=== PATIENT | male | born 1970 | race Caucasian/White ===

== ENCOUNTER 2020-02-21 16:48 | Emergency (ER) | payer OTHER, SELFPAY ==
[2020-02-21 16:55] VITALS: BP 126/80; PULSE 97; RESP 22; TEMP 37.1; O2SAT 99
--- NOTE | 2020-02-21 17:19 | ED.GENADULT ---
HPI - General Adult General Chief complaint: Skin/Abscess/Foreign Body Stated complaint: Possible Poison Teena Time Seen by Provider: 02/21/20 17:20 Source: patient and RN notes reviewed Mode of arrival: ambulatory Limitations: no limitations History of Present Illness HPI narrative: This is a 49 years old male presents to the office for evaluation itchy rash for four days. Symptoms began shortly after he working in the yard. His cousin who work in the same year has similar rash but not as bad as he is. Rash was very intense last night. No treatment prior to arrival. He admits to taking a very hot hot showers which has helped with his itchiness temporarily. TD is up-to-date. Related Data Allergies Allergy/AdvReac Type Severity Reaction Status Date / Time No Known Allergies Allergy Verified 02/21/20 17:04 Review of Systems Review of Systems: Narrative: CONSTITUTIONAL: Denies fever, chills ENT: Denies difficulty swallowing CARDIOVASCULAR: Denies chest pain, palpitation RESPIRATORY: Denies dyspnea, wheezing, cough GASTROINTESTINAL: Denies abdominal pain, nausea, vomiting SKIN: Reports itchy rash on extremities, torso MUSCULOSKELETAL: Denies acute back pain NEUROLOGIC: Denies lightheaded All other systems reviewed are negative, except as documented in HPI. [facility] Past Medical History Medical History (Updated 02/21/20 @ 17:32 by HARLEY Rodriguez) Anxiety Surgical History Surgical History (Updated 02/21/20 @ 17:33 by HARLEY Rodriguez) Hx of appendectomy Comments At time of signature, I agree with nursing past medical, surgical, social and family history. There is no relevant family history pertinent to the presenting complaint. Exam Narrative: Exam Narrative: GENERAL: This is a well-nourished, well-developed patient, in no apparent distress. Older than state age. THROAT: Mucous membranes moist, posterior pharynx clear. Patient has no teeth. NECK: Neck supple, non-tender without lymphadenopathy, masses or thyromegaly. CARDIOVASCULAR: Regular rate and rhythm without murmurs, gallops, or rubs. RESPIRATORY: Clear to auscultation. Breath sounds equal bilaterally. No wheezes, rales, or rhonchi. GASTROINTESTINAL: Abdomen soft, non-tender, nondistended. Bowel sounds are active. No hepato-splenomegaly, or palpable masses. No guarding. SKIN: macular, erythema noted throughout his extremities, torso and neck with mixture of old and new skin lesions; patient contribute to picking/scratching. NEURO: awake, alert, and oriented to person, place and time. There were no obvious focal neurologic abnormalities. Steady gait EXTREMITIES: Normal range of motion. No edema. Bernice Coma Scale Eye Opening: Spontaneous 4 Bernice Coma Scale Motor: Obeys Commands 6 Notus Coma Scale Verbal: Oriented 5 Course Vital Signs Vital signs: Vital Signs Temperature 98.8 F 02/21/20 16:55 Pulse Rate 97 02/21/20 16:55 Respiratory Rate 22 H 02/21/20 16:55 Blood Pressure 126/80 02/21/20 16:55 Pulse Oximetry 99 02/21/20 16:55 Temperature 98.8 F 02/21/20 16:55 Pulse Rate 97 02/21/20 16:55 Respiratory Rate 22 H 02/21/20 16:55 Blood Pressure 126/80 02/21/20 16:55 Pulse Oximetry 99 02/21/20 16:55 Medical Decision Making MDM Narrative Medical decision making narrative: Discharge instructions reviewed with patient, as well as provided in writing per nursing staff. The instructions also include specific and strict return/GO TO THE ER as well as f/u information. All questions have been answered, and the patient deny any further questions with discharge and discharge plan. Differential Diagnosis Differential Diagnosis: Contact/allergic dermatitis, atopic dermatitis, psoriasis, eczema, cellulitis, tinea, erythema multiforme, viral exanthem, drug eruption Vital Signs Vital Signs: Vital Signs Temperature 98.8 F 02/21/20 16:55 Pulse Rate 97 02/21/20 16:55 Respiratory Rate 22 H 02/21/20 16
== END 2020-02-21 17:32 | disposition home or self-care (01) ==
PROVIDERS: Emergency Provider Nurse Practitioner
DX: L30.9 Dermatitis, unspecified (principal)
CPT/HCPCS: 99213; G0463

== ENCOUNTER 2020-11-17 19:38 | Emergency (ER) | payer OTHER, SELFPAY ==
[2020-11-17 19:45] VITALS: BP 139/86; PULSE 84; RESP 18; TEMP 35.9; O2SAT 100
--- NOTE | 2020-11-17 20:07 | ED.DENTAL ---
HPI - Dental/Oral General Chief complaint: Dental/Oral Stated complaint: toothpain Time Seen by Provider: 11/17/20 19:55 Source: patient, RN notes reviewed and old records reviewed Mode of arrival: ambulatory Limitations: no limitations History of Present Illness HPI Narrative: 50 year old male presents to [facility] with complaints of dental pain to his right lower mouth for the past 3 days. Patient reports history of poor dental care and bad teeth. Patient states pain to # 29 tooth which is broken with surrounding gum red with no evidence of drainage. Patient states that he has past history of methamphetamine use,reports no use for the past 14 months. Patient has taken some Ibuprofen for his discomfort but reports no relief in his discomfort. Patient states that he has no dentist, list will be given. MD Complaint: tooth pain Location: Tooth # (29) Onset (ago): day(s) (3) Severity: severe Severity scale (1-10): 9 Relieving factors: NSAIDs Exacerbating factors: chewing Context: history of dental caries and poor dental care Associated symptoms: gum swelling and other Treatment prior to arrival: other (Ibuprofen) Related Data Allergies Allergy/AdvReac Type Severity Reaction Status Date / Time No Known Allergies Allergy Verified 02/21/20 17:04 Review of Systems Review of Systems: Narrative: CONSTITUTIONAL: Denies fever, chills, or sweats. EYES: Denies visual changes, redness, or discharge. ENT: Denies rhinorrhea, congestion, sore throat, or otalgia. Positive for right-sided dental pain lower gum CARDIOVASCULAR: Denies chest pain, palpitations, or edema. RESPIRATORY: Denies cough or dyspnea. GASTROINTESTINAL: Denies abdominal pain, nausea, vomiting, or diarrhea. GENITOURINARY: Denies dysuria or hematuria. SKIN: Denies rash or itching. MUSCULOSKELETAL: Denies back pain, joint pain, or myalgia. NEUROLOGIC: Denies headache, numbness, or weakness. PSYCHIATRIC: Positive history of anxiety or depression. All systems reviewed & are unremarkable except as noted in HPI and below PMFSH Past Medical History Medical History (Updated 11/26/20 @ 20:05 by Debbie Villalba NP) Anxiety History of dental problems History of drug abuse Surgical History Surgical History (Updated 11/26/20 @ 20:06 by Debbie Villalba NP) H/O tooth extraction Hx of appendectomy Family History Family History (Updated 11/26/20 @ 20:07 by Debbie Villalba NP) Other No significant family history Social History Social History (Updated 11/26/20 @ 20:07 by Debbie Villalba NP) Smoking status: Former smoker Alcohol intake: former Substance use: former Substance use type: amphetamines Last use: 14 months ago stated Gender identity (if verbalized by the patient): Male Comments At time of signature, agree with nursing past medical, surgical, social and family history. There is no relevant family history pertinent to the presenting complaint Exam Narrative: Exam Narrative: GENERAL: Well-appearing, well-nourished, and in no acute distress. HEAD: Normocephalic, atraumatic. EYES: PERRLA and EOMI. ENT: Nares clear, no rhinorrhea or epistaxis. Mucous membranes moist. TMs normal with light reflex. Throat pink with no tonsil enlargement no trismus or Elroy angina NECK: Supple. Right-sided lymphadenopathy CHEST: Clear to auscultation. No respiratory distress. SaO2 100% on room air HEART: Regular rate and rhythm. No murmur heard. Normal peripheral pulses. ABDOMEN: Soft, nontender, nondistended, normal active bowel sounds. EXTREMITIES: Normal range of motion. No edema. SKIN: Warm, dry, no rash. NEURO: No focal deficits. Alert and oriented x3. Course Vital Signs Vital signs: Vital Signs Temperature 35.9 C L 11/17/20 19:45 Pulse Rate 84 11/17/20 19:45 Respiratory Rate 18 11/17/20 19:45 Blood Pressure 139/86 11/17/20 19:45 Pulse Oximetry 100 11/17/20 19:45 Temperature 35.9 C L 11/17/20 19:45 Pulse Rate 84
== END 2020-11-17 20:26 | disposition home or self-care (01) ==
PROVIDERS: Emergency Provider Registered Nurse
DX: K04.7 Periapical abscess without sinus (principal); K08.89 Other specified disorders of teeth and supporting structures
CPT/HCPCS: 99213; G0463

== ENCOUNTER 2025-02-01 13:12 | Emergency (ER) | payer OTHER, SELFPAY ==
--- OUTSIDE RECORDS SUMMARY | 2025-02-01 13:15 | XMS_ITS | Encounter Summary ---
Author Organization [facility] Care Team Providers Care Veneer Press Operator Name Role Phone Provider, None Primary Care Provider Unavailabl e Encounter Details Date Type Department Care Team (Latest Contact Info) Description 01/31/2025 Travel Social History Tobacco Use Types Packs/Day Years Used Date Smoking Tobacco: Never Assessed Sex and Gender Information Value Date Recorded Sex Assigned at Not on file Legal Sex Male 9:09 PM CDT Gender Identity Not on file Sexual Orientation Not on file documented as of this encounter Plan of Treatment Not on file documented as of this encounter Visit Diagnoses Not on filedocumented in this encounter Care Teams Veneer Press Operator Relationship Specialty Start Date End Date Provider, None [place] PCP - General 01/31/25 documented as of this encounter
--- OUTSIDE RECORDS SUMMARY | 2025-02-01 13:15 | XMS_ITS | Clinical Summary ---
Author Organization [facility] [employer] Address [address] [place] [address] Care Team Providers Care Planning Supervisor Name Role Phone Unavailable Primary Care Provider Unavailabl e Source Comments [facility] [employer],non-owned Affiliates and Associated Physician Practices is amultiple site organization consisting of ambulatory clinics and hospital sitesin [place], [place], [place] and [place]. This disclosure is being madepursuant to the Care Everywhere program and may not contain all information available regarding this patient. Last updated 18.[facility] [employer] Allergies No known active allergies Medications * Be aware that medications may not be up to date on this document. Alwaysverify current medications with the patient. No known medications Social History Tobacco Use Types Packs/Day Years Used Date Smoking Tobacco: Every Day Smokeless Tobacco: Never Alcohol Use Standard Drinks/Week Comments No 0 (1 standard drink = 0.6 oz pur e alcohol) Sex and Gender Information Value Date Recorded Sex Assigned at Not on file Legal Sex Male 6:44 PM CATH LAB RADIOLOGY TECHNICIAN Gender Identity Not on file Sexual Orientation Not on file Last Filed Vital Signs Vital Sign Reading Time Taken Comments Blood Pressure 129/89 07/11/2017 1:53 AM CATH LAB RADIOLOGY TECHNICIAN Pulse 90 07/11/2017 2:00 AM CATH LAB RADIOLOGY TECHNICIAN Temperature 36.3 C (97.3 F) 07/11/2017 1:53 AM CATH LAB RADIOLOGY TECHNICIAN Respiratory Rate 16 07/11/2017 1:53 AM CATH LAB RADIOLOGY TECHNICIAN Oxygen Saturation 100% 07/11/2017 1:53 AM CATH LAB RADIOLOGY TECHNICIAN Inhaled Oxygen Concentration - - Weight 81.6 kg (180 lb) 07/11/2017 1:51 AM CATH LAB RADIOLOGY TECHNICIAN Height 180.3 cm (5' 11) 07/11/2017 1:51 AM CATH LAB RADIOLOGY TECHNICIAN Body Mass Index 25.1 07/11/2017 1:51 AM CATH LAB RADIOLOGY TECHNICIAN Plan of Treatment Health Maintenance Due Date Last Done Comments COLOGUARD (AGES 45-75) - COL ON CA SCREENING 1971 COLON MONITORING 1971 COLONOSCOPY - COLON CA SCREENING 1971 CT COLONOGRAPHY - COLON CA SCREENING 1971 Colorectal Cancer Screening 1971 FIT - COLON CA SCREENING 1971 FLEX SIG - COLON CA SCREENING 1971 LIPID TESTING 1971 HIV SCREENING 09/25/1986 HEPATITIS C SCREENING 09/21/1989 DTAP/TDAP/TD VACCINES (1 - Tdap) 09/25/1990 HEPATITIS B VACCINE (1 of 3 - 19+ 3-dose series) 09/25/1990 PNEUMOCOCCAL VACCINE 50+ (1 of 1 - PCV) 09/25/2021 ZOSTER VACCINE (1 of 2) 09/25/2021 COVID-19 VACCINE (1 - 2023-2 5 season) 2024 DEPRESSION SCREENING 07/23/2024 INFLUENZA VACCINE (#1) 2025 HIB VACCINE Aged Out No longer eligi ble based on patient's age to complete this topic HPV VACCINE Aged Out No longer eligi ble based on patient's age to complete this topic MENINGOCOCCAL (Group B) VACC INE SHARED DECISION-MAKING Aged Out No longer eligibl e based on patient's age to complete this topic MENINGOCOCCAL GROUPS A/C/Y/W VACCINE Aged Out No longer eligible b ased on patient's age to complete this topic Insurance [employer]
--- OUTSIDE RECORDS SUMMARY | 2025-02-01 13:15 | XMS_ITS | Clinical Summary ---
Author Organization [facility] Address [address] [place] [phone] Phone Care Team Providers Care Development Manager Name Role Phone Provider, None Primary Care Provider Unavailabl e Allergies No known active allergies Medications ondansetron (ZOFRAN) 4 MG Tablet Take 1-2 Tablets by mouth every 8 hours as needed for Nausea - 1st line. 10 Tablet 01/31/2025 Active Encounters Date Type Department Care Team Description 01/31/2025 12:35 PM CDT - 01/31/2025 2:53 PM CDT Emergency [facility] [address] [place] [address] Adiel Armstrong MD Nausea and vomiting, unspecified vomiting type Discharge Disposition: Discharged to home or Selfcare 01/31/2025 Travel from Last 3 Months Immunizations Immunization Administration Dates Next Due Td Vaccine (preservative free) 01/31/2025 Social History Tobacco Use Types Packs/Day Years Used Date Smoking Tobacco: Never Assessed Sex and Gender Information Value Date Recorded Sex Assigned at Not on file Legal Sex Male 9:09 PM CDT Gender Identity Not on file Sexual Orientation Not on file Last Filed Vital Signs Vital Sign Reading Time Taken Comments Blood Pressure 127/77 01/31/2025 12:41 PM CDT Pulse 69 01/31/2025 12:41 PM CDT Temperature 36 C (96.8 F) 01/31/2025 12:41 PM CDT Respiratory Rate 18 01/31/2025 12:41 PM CDT Oxygen Saturation 99% 01/31/2025 12:41 PM CDT Inhaled Oxygen Concentration - - Weight 65.8 kg (145 lb) 01/31/2025 12:41 PM CDT Height 177.8 cm (5' 10) 01/31/2025 12:41 PM CDT Body Mass Index 20.81 01/31/2025 12:41 PM CDT Plan of Treatment Health Maintenance Due Date Last Done Comments Hepatitis C Virus (HCV) Screening 1971 TdaP Immunization 1971 Hepatitis B Immunization (1 of 3 - 19+ 3-dose series) 09/25/1990 Cologuard 09/25/2016 Colonoscopy 09/25/2016 Colorectal Cancer Screening 09/25/2016 Immunochemical Fecal Occult Blood 09/25/2016 Pneumococcal Immunization (5 0+ years) (1 of 1 - PCV) 09/25/2021 Zoster Immunization (1 of 2) 09/25/2021 SARS-COV-2 Immunization (1 - season) 2024 Influenza Immunization (#1) 2025 Respiratory Syncytial Virus (RSV) Immunization (Adult) (1 - 1-dose 75+ series) 09/25/2046 Human Papillomavirus (HPV) Immunization Aged Out No longer eligible b ased on patient's age to complete this topic Meningococcal Immunization (ACWY) Aged Out No longer eligible based on patient's age to complete this topic Rotavirus Immunization Aged Out No lo nger eligible based on patient's age to complete this topic Procedures Procedure Name Priority Date/Time Associated Diagnosis Comments XR HAND 3 OR MORE VIEWS LEFT STAT 01/31/2025 1:04 PM CDT CBC WITH AUTO DIFFERENTIAL STAT 01/31/2025 12:50 PM CDT MAGNESIUM (MG) STAT 01/31/2025 12:50 PM CDT LIPASE STAT 01/31/2025 12:50 PM CDT CMP (COMPREHENSIVE METABOLIC PANEL) STAT 01/31/2025 12:50 PM CDT COMPLETE BLOOD COUNT (CBC) WITH DIFF STAT 01/31/2025 12:50 PM CDT from Last 3 Months Results * XR HAND 3 OR MORE VIEWS LEFT (01/31/2025 1:04 PM CDT) Anatomical Region Laterality Modality UPPER EXTREMITY, hand Left Digital Ra diography 01/31/2025 1:25 PM CDT Impressions 01/31/2025 1:27 PM CDT IMPRESSION: Small density projecting in the soft tissues adjacent to the left hamate and pisiform and slightly more distally at the level of the 5th metacarpal shaft. These could represent small foreign bodies. Please correlate clinically with the site of laceration. No acute osseous findings. Narrative 01/31/2025 1:27 PM CDT EXAM DESCRIPTION: XR HAND 3 OR MORE VIEWS LEFT REASON FOR STUDY: pt c/o LT hand pain and laceration after cutting hand on a piece of glass last night. TECHNIQUE: 3 radiographic view(s) of the left hand . COMPARISON: None available FINDINGS: Projecting adjacent to the hamate and pisiform are small dense fragments measuring up to 8 mm in aggregate. Additional punctate densities are seen slightly more distally in the hand at the level of the 5th metacarpal shaft. These could represent small foreign bodies. Please correlate clinically with the site of laceration.. Joint alignment is normal. 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 No acute fracture or aggressive bone lesion is seen. THIS IS AN ELECTRONICALLY VERIFIED FINAL REPORT 01/31/2025 1:25 PM - Electronically signed by Ike Disla M.D. MZ: MZ Report ID: [id number] Reading Location: [id number] Procedure Note Ike Disla MD - 01/31/2025 EXAM DESCRIPTION: XR HAND 3 OR MORE VIEWS LEFT REASON FOR STUDY: pt c/o LT hand pain and laceration after cutting hand on a piece of glass last night. TECHNIQUE: 3 radiographic view(s) of the left hand . COMPARISON: None available FINDINGS: Projecting adjacent to the hamate and pisiform are small dense fragments measuring up to 8 mm in aggregate. Additional punctate densities are seen slightly more distally in the hand at the level of the 5th metacarpal shaft. These could represent small foreign bodies. Please correlate clinically with the site of laceration.. Joint alignment is normal. 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 No acute fracture or aggressive bone lesion is seen. THIS IS AN ELECTRONICALLY VERIFIED FINAL REPORT 01/31/2025 1:25 PM - Electronically signed by Ike Disla M.D. MZ: MZ Report ID: [id number] Reading Location: [id number] IMPRESSION: Small density projecting in the soft tissues adjacent to the left hamate and pisiform and slightly more distally at the level of the 5th metacarpal shaft. These could represent small foreign bodies. Please correlate clinically with the site of laceration. No acute osseous findings. Adiel Armstrong MD IMG DIAGNOSTIC ORDERABLES Final Result * (ABNORMAL) CBC with Auto Differential (01/31/2025 12:50 PM CDT) WBC 6.21 4.00 - 12.00 10(3)/mcL 01/31/2025 1:51 PM CDT [facility] RBC 4.60 4.40 - 5.80 10(6)/mcL 01/31/2025 1:51 PM CDT [facility] HEMOGLOBIN (HGB) 13.6 13.0 - 16.5 g/dL 01/31/2025 1:51 PM CDT [facility] HEMATOCRIT (HCT) 40.8 38.0 - 50.0 % 01/31/2025 1:51 PM CDT [facility] MCV 88.7 82.0 - 96.0 fL 01/31/2025 1:51 PM CDT [facility] MCH 29.6 26.0 - 32.0 pg 01/31/2025 1:51 PM CDT [facility] MCHC 33.3 31.0 - 36.0 g/dL 01/31/2025 1:51 PM CDT [facility] PLATELET COUNT 354 140 - 440 10(3)/mcL 01/31/2025 1:51 PM CDT [facility] RDW 12.8 11.8 - 15.5 % 01/31/2025 1:51 PM CDT [facility] MPV 10.5 8.0 - 12.6 fL 01/31/2025 1:51 PM CDT [facility] NEUTROPHILS 62.8 40.0 - 68.0 % 01/31/2025 1:51 PM CDT [facility] LYMPHOCYTES 17.1(L) 19.0 - 49.0 % 01/31/2025 1:51 PM CDT [facility] MONOCYTES 15.8(H) 3.0 - 13.0 % 01/31/2025 1:51 PM CDT [facility] EOSINOPHILS 4.0 0.0 - 8.0 % 01/31/2025 1:51 PM CDT [facility] BASOPHILS 0.0 0.0 - 1.0 % 01/31/2025 1:51 PM CDT [facility] IMMATURE GRANULOCYTE 0.3 0.0 - 0.4 % 01/31/2025 1:51 PM CDT [facility] Comment:Immature Granulocyte s includes Metamyelocytes, Myelocytes, and Promyelocytes. ABSOLUTE NEUTROPHILS 3.90 1.40 - 5.30 10(3)/mcL 01/31/2025 1:51 PM CDT [facility] ABSOLUTE LYMPHOCYTES 1.06 0.90 - 3.30 10(3)/mcL 01/31/2025 1:51 PM CDT [facility] ABSOLUTE MONOCYTES 0.98(H) 0.10 - 0.90 10(3)/mcL 01/31/2025 1:51 PM CDT [facility] ABSOLUTE EOSINOPHIL 0.25 0.00 - 0.50 10(3)/mcL 01/31/2025 1:51 PM CDT [facility] ABSOLUTE BASOPHILS 0.00 0.00 - 0.10 10(3)/mcL 01/31/2025 1:51 PM CDT [facility] ABSOLUTE IMMATURE GRANULOCYTE 0.02 0.00 - 0.03 10 (3) mcL. 01/31/2025 1:51 PM CDT [facility] NRBC PER 100 WBC 0 07/12/20 25 1:51 PM CDT [facility] Blood Venipuncture / Unknown 01/31/2025 12:50 PM CDT 01/31/2025 1:49 PM CDT Adiel Armstrong MD HEMATOLOGY ORDERABLES Fin al Result Performing Organization Address City/[facility]/ZIP Co de Phone Number [facility] [address] [place] [address] * Magnesium Level (01/31/2025 12:50 PM CDT) MAGNESIUM 1.9 1.6 - 2.6 mg/dL 01/31/2025 2:13 PM CDT [facility] Blood Venipuncture / Unknown 01/31/2025 12:50 PM CDT 01/31/2025 1:49 PM CDT Adiel Armstrong MD CHEMISTRY ORDERABLES Janet l Result Performing Organization Address City/[facility]/ZIP Co de Phone Number [facility] [address] [place] [address] * Lipase (01/31/2025 12:50 PM CDT) LIPASE 21 8 - 78 U/L 01/31/2025 2:13 PM CDT [facility] Blood Venipuncture / Unknown 01/31/2025 12:50 PM CDT 01/31/2025 1:49 PM CDT Adiel Armstrong MD CHEMISTRY ORDERABLES Janet l Result Performing Organization Address City/[facility]/ZIP Co de Phone Number [facility] [address] [place] [address] * (ABNORMAL) CMP (01/31/2025 12:50 PM CDT) SODIUM 138 136 - 145 mmol/L 01/31/2025 2:13 PM CDT [facility] POTASSIUM 3.8 3.5 - 5.1 mmol/L 01/31/2025 2:13 PM CDT [facility] CHLORIDE 104 98 - 107 mmol/L 01/31/2025 2:13 PM CDT [facility] CO2, VENOUS 25 22 - 30 mmol/L 01/31/2025 2:13 PM CDT [facility] ANION GAP 12.8 <18.0 mmol/L 01/31/2025 2:13 PM CDT [facility] GLUCOSE 101(H) 70 - 99 mg/dL 01/31/2025 2:13 PM CDT [facility] BUN 12 8 - 26 mg/dL 01/31/2025 2:13 PM CDT [facility] CREATININE, BLOOD 0.76 0.70 - 1.30 mg/dL 01/31/2025 2:13 PM CDT [facility] BUN/CREATININE RATIO 16 12 - 20 ratio 01/31/2025 2:13 PM CDT [facility] TOTAL PROTEIN 8.1(H) 6.0 - 8.0 g/dL 01/31/2025 2:13 PM CDT [facility] ALBUMIN 4.5 3.5 - 5.0 g/dL 01/31/2025 2:13 PM CDT [facility] A/G RATIO 1.3 1.0 - 2.2 01/31/2025 2:13 PM CDT [facility] CALCIUM 8.6(L) 8.7 - 10.5 mg/dL 01/31/2025 2:13 PM CDT [facility] T BILI 0.5 0.2 - 1.2 mg/dL 01/31/2025 2:13 PM CDT [facility] SGOT (AST) 17 <43 U/L 01/31/2025 2:13 PM CDT [facility] SGPT (ALT) 12 <56 U/L 01/31/2025 2:13 PM CDT [facility] ALKALINE PHOSPHATASE 91 40 - 150 U/L 01/31/2025 2:13 PM CDT [facility] GFR, ESTIMATED >60 >=60 01/31/2025 2:13 PM CDT [facility] Comment: Creatinine Clearance is the preferred criteria for selecting drug dose adjustments in renally impaired patients. The GFR is provided as additional pertinent clinical information. GFR is reported in mL/min/1.73 sq m. Calculation based on the Chronic Kidney Disease Epidemiology Collaboration (CKD- EPI) equation refit without adjustment for race. GFR, EST. >60 >=60 025 2:13 PM CDT [facility] GFR, EST. NONAFRICAN >60 >=60 01/31/2025 2:13 PM CDT [facility] Blood Venipuncture / Unknown 01/31/2025 12:50 PM CDT 01/31/2025 1:49 PM CDT us Adiel Armstrong MD CHEMISTRY ORDERABLES Janet l Result [facility] [address] [place] [address] from Last 3 Months Care Teams Development Manager Relationship Specialty Start Date End Date Provider, None [place] PCP - General 01/31/25
--- OUTSIDE RECORDS SUMMARY | 2025-02-01 13:15 | XMS_ITS | Encounter Summary ---
Author Organization [facility] Address [address] [place] [place] [address] Phone Care Team Providers Care Sales Center Manager Name Role Phone Provider, None Primary Care Provider Unavailabl e Reason for Visit * Reason Comments Abdominal Pain Laceration Encounter Details Date Type Department Care Team (Late st Contact Info) Description 01/31/2025 12:35 PM CDT - 01/31/2025 2:53 PM CDT Emergency [facility] Emergency [address] [place] [id number] Adiel Armstrong MD [address] [place] [address] Nausea and vomiting, unspecified vomiting type Discharge Disposition: Discharged to home or Selfcare Social History Tobacco Use Types Packs/Day Years Used Date Smoking Tobacco: Never Assessed Sex and Gender Information Value Date Recorded Sex Assigned at Not on file Legal Sex Male 9:09 PM CDT Gender Identity Not on file Sexual Orientation Not on file documented as of this encounter Last Filed Vital Signs Vital Sign Reading [...] Mass Index 20.81 01/31/2025 12:41 PM CDT documented in this encounter Discharge Instructions * Discharge Instructions* Adiel Armstrong MD - 01/31/2025 2:16 PM CDT As we discussed, your work-up today did not reveal a reason to be admitted to the hospital. Nevertheless, you still will require close follow-up for your symptoms today. It is very important that youfollow-up with your primary care doctor within the next 3 days. Please come back immediately if youhave any high fever, severe pain, shortness of breath, weakness, persistent vomiting, worsening of symptoms, new symptoms, inability to obtain appropriate follow-up, or anything else concerning to you. documented in this encounter Medications at Time of Discharge ondansetron (ZOFRAN) 4 MG Tablet Take 1-2 Tablets by mouth every 8 hours as needed for Nausea - 1st line. 10 Tablet 01/31/2025 documented as of this encounter ED Notes * Jeremie Mcdonald RN - 01/31/2025 2:52 PM CDT Patient discharged. Patient refused vitals at discharge. Discharge instructions and patient educational material reviewed with patient; questions and concerns addressed; patient verbalizes understanding, using teach back. Patient was given 1 prescriptions. D/C'ed with Gerard cath intact. * Jeremie Mcdonald RN - 01/31/2025 2:40 PM CDT Pt. Given paper scrubs due to his current clothes being covered in feces per patient request. * Jeremie Mcdonald RN - 01/31/2025 12:56 PM CDT Pt medicated per provider orders. Pt educated on intended effects and side effects of medication and verbalized understanding, able to provide teach back of education. * Jeremie Mcdonald RN - 01/31/2025 12:50 PM CDT IV access obtained and labs obtained. * Adiel Armstrong MD - 01/31/2025 12:46 PM CDT Chief Complaint Patient presents with Abdominal Pain Laceration This is a 53-year-old male with a history of homelessness, bad heart, who comes in due to nausea and vomiting. Patient states that he thinks he has food poisoning. He states that he ate some bad food yesterday and over the past 24 hours has been having persistent nausea and vomiting as well as diarrhea. He notes generalized abdominal discomfort associated with this. No sharp focal pains. No fevers or chills. States that he also cut his left hand on some glass last night in the context of his vomiting. He states that he had some bleeding at that time. Notes pain in the left hand as well. He denies any other injuries. Abdominal Pain Laceration Current Medications[1] Allergies[2] No past medical history on file. Past Surgical History[3] Social History Socioeconomic History Marital status: Spouse name: Not on file Number of children: Not on file Years of education: Not on file Highest education level: Not on file Occupational History Not on file Tobacco Use Smoking status: Not on file Smokeless tobacco: Not on file Substance and Sexual Activity Alcohol use: Not on file Drug use: Not on file Sexual activity: Not on file Other Topics Concern Not on file Social History Narrative Not on file Social Drivers of Health Financial Resource Needs: Not on file Food Insecurity Needs: Not on file Transportation Needs: Not on file Physical Activity: Not on file Stress: Not on file Social Integration: Not on file Personal Safety: Low Risk (01/31/2025) Personal Safety Feels Unsafe at Home or Work/School: other (see comments) Feels Threatened by Someone: no Does Anyone Try to Keep You From Having Contact with Others or Doing Things Outside Your Home?: other (see comments) Physical Signs of Abuse Present: no Housing Stability: Not on file BP 127/77 Pulse 69 Temp 96.8 ??F (36 ??C) (Tympanic) Resp 18 Ht 5' 10 (1.778 m) Wt 145 lb (65.8 kg) SpO2 99% BMI 20.81 kg/m?? Review of Systems Physical Exam Vitals and nursing note reviewed. Constitutional: Comments: Nontoxic-appearing middle-age male. HENT: Head: Normocephalic and atraumatic. Mouth/Throat: Mouth: Mucous membranes are moist. Pharynx: Oropharynx is clear. Eyes: Extraocular Movements: Extraocular movements intact. Pupils: Pupils are equal, round, and reactive to light. Cardiovascular: Rate and Rhythm: Normal rate and regular rhythm. Heart sounds: Normal heart sounds. Pulmonary: Effort: Pulmonary effort is normal. Breath sounds: Normal breath sounds. Abdominal: General: Bowel sounds are normal. Palpations: Abdomen is soft. Tenderness: There is no abdominal tenderness. Negative signs include White's sign and McBurney's sign. Skin: General: Skin is warm and dry. Capillary Refill: Capillary refill takes less than 2 seconds. Comments: Puncture wound noted to the anterior surface of the medial aspect of the left palm. Driedblood noted without active bleeding. Full active range of motion noted to the fingers and hand. No discharge or surrounding erythema. No sausage digits or tenderness over the flexor tendons. Neurological: General: No focal deficit present. Mental Status: He is oriented to person, place, and time. Cranial Nerves: No cranial nerve deficit. Motor: No weakness. Psychiatric: Mood and Affect: Mood normal. Procedures Recent Results (from the past 24 hours) CMP Collection Time: 01/31/25 12:50 PM Result Value Ref Range SODIUM 138 136 - 145 mmol/L POTASSIUM 3.8 3.5 - 5.1 mmol/L CHLORIDE 104 98 - 107 mmol/L CO2, VENOUS 25 22 - 30 mmol/L ANION GAP 12.8 <18.0 mmol/L GLUCOSE 101 (H) 70 - 99 mg/dL BUN 12 8 - 26 mg/dL CREATININE, BLOOD 0.76 0.70 - 1.30 mg/dL BUN/CREATININE RATIO 16 12 - 20 ratio TOTAL PROTEIN 8.1 (H) 6.0 - 8.0 g/dL ALBUMIN 4.5 3.5 - 5.0 g/dL A/G RATIO 1.3 1.0 - 2.2 CALCIUM 8.6 (L) 8.7 - 10.5 mg/dL T BILI 0.5 0.2 - 1.2 mg/dL SGOT (AST) 17 <43 U/L SGPT (ALT) 12 <56 U/L ALKALINE PHOSPHATASE 91 40 - 150 U/L GFR, ESTIMATED >60 >=60 GFR, EST. >60 >=60 GFR, EST. NONAFRICAN >60 >=60 Lipase Collection Time: 01/31/25 12:50 PM Result Value Ref Range LIPASE 21 8 - 78 U/L Magnesium Level Collection Time: 01/31/25 12:50 PM Result Value Ref Range MAGNESIUM 1.9 1.6 - 2.6 mg/dL CBC with Auto Differential Collection Time: 01/31/25 12:50 PM Result Value Ref Range WBC 6.21 4.00 - 12.00 10(3)/mcL RBC 4.60 4.40 - 5.80 10(6)/mcL HEMOGLOBIN (HGB) 13.6 13.0 - 16.5 g/dL HEMATOCRIT (HCT) 40.8 38.0 - 50.0 % MCV 88.7 82.0 - 96.0 fL MCH 29.6 26.0 - 32.0 pg MCHC 33.3 31.0 - 36.0 g/dL PLATELET COUNT 354 140 - 440 10(3)/mcL RDW 12.8 11.8 - 15.5 % MPV 10.5 8.0 - 12.6 fL NEUTROPHILS 62.8 40.0 - 68.0 % LYMPHOCYTES 17.1 (L) 19.0 - 49.0 % MONOCYTES 15.8 (H) 3.0 - 13.0 % EOSINOPHILS 4.0 0.0 - 8.0 % BASOPHILS 0.0 0.0 - 1.0 % IMMATURE GRANULOCYTE 0.3 0.0 - 0.4 % ABSOLUTE NEUTROPHILS 3.90 1.40 - 5.30 10(3)/mcL ABSOLUTE LYMPHOCYTES 1.06 0.90 - 3.30 10(3)/mcL ABSOLUTE MONOCYTES 0.98 (H) 0.10 - 0.90 10(3)/mcL ABSOLUTE EOSINOPHIL 0.25 0.00 - 0.50 10(3)/mcL ABSOLUTE BASOPHILS 0.00 0.00 - 0.10 10(3)/mcL ABSOLUTE IMMATURE GRANULOCYTE 0.02 0.00 - 0.03 10 (3) mcL. NRBC PER 100 WBC 0 Imaging Results XR HAND 3 OR MORE VIEWS LEFT (Final result) Result time 01/31/25 13:27:48 Final result by Ike Disla MD (01/31/25 13:27:48) Impression: IMPRESSION: Small density projecting in the soft tissues adjacent to the left hamate and pisiform and slightly more distally at the level of the 5th metacarpal shaft. These could represent small foreign bodies. Please correlate clinically with the site of laceration. No acute osseous findings. Narrative: EXAM DESCRIPTION: XR HAND 3 OR MORE [...] Ike Disla M.D. MZ: MZ Report ID: [id number] Reading Location: [id number] Medical Decision Making This is a 54-year-old male with history as above who comes in due to nausea and vomiting and diarrhea. Differential diagnoses to consider in this patient include: acute gastroenteritis vs gallbladder/hepatic pathology vs pancreatitis vs gastritis/reflux vs appendicitis vs diverticulitis/colitis vs obstruction vs renal colic. Suspect his symptoms are likely due to a gastroenteritis. He does not have any focal tenderness that would suggest acute abdomen. Given his symptoms we will check labs to rule out any findings of CARLO, electrolyte derangements, hepatitis or pancreatitis. He does have a small wound on his left hand. Given the small size and duration of symptoms I do not think that this wou ld be amenable to laceration repair. Will get an x-ray to rule out any signs of fracture, foreign body. Clinical Impression 1. Nausea and vomiting, unspecified vomiting type Disposition: Discharge ED Course as of 01/31/25 1416 Sat Jan 31, 2025 1413 Patient's labs are grossly unremarkable. His x-ray does not show any fracture. His wound was irrigated and cleaned and any foreign bodies were removed. Will plan to discharge at this time. Will prescribe a short course of Zofran. Recommended that he keep his diet bland and follow-up with primary care within the next 2 weeks. Recommend he return if any new or worsening symptoms. Note: Portions of this chart may have been completed with voice recognition software and may contain slight errors unrecognizable by the users. This would in no way affect the patient's care and is meant to improve length and quality of medical decision making and history taking. [1] No current facility-administered medications for this encounter. Current Outpatient Medications Medication Sig Dispense Refill ondansetron (ZOFRAN) 4 MG Tablet Take 1-2 Tablets by mouth every 8 hours as needed for Nausea - 1stline. 10 Tablet 0 [2] No Known Allergies [3] No past surgical history on file. * Radha Poole RN - 01/31/2025 12:42 PM CDT Arrived ambulatory through triage with complaints of abdominal pain with nausea and vomiting that began last night after eating pizza. Patient with laceration to left hand that he states also happened last night while walking [place]. Reports he cut it on a piece of glass. Patient reportsthat he is unhoused. documented in this encounter Plan of Treatment Not on file documented as of this encounter Procedures Procedure Name Priority Date/Time Associated Diagnosis Comments XR HAND 3 OR MORE VIEWS LEFT STAT 01/31/2025 1:04 PM CDT CBC WITH AUTO DIFFERENTIAL STAT 01/31/2025 12:50 PM CDT MAGNESIUM (MG) STAT 01/31/2025 12:50 PM CDT LIPASE STAT 01/31/2025 12:50 PM CDT CMP (COMPREHENSIVE METABOLIC PANEL) STAT 01/31/2025 12:50 PM CDT COMPLETE BLOOD COUNT (CBC) WITH DIFF STAT 01/31/2025 12:50 PM CDT documented in this encounter Results * XR HAND 3 OR MORE [...] Electronically signed by Ike Disla M.D. MZ: JUAN J Report ID: [id number] Reading Location: [id number] Procedure Note Ike Disla MD - 01/31/2025 [...] Ike Disla M.D. MZ: MZ Report ID: [id number] Reading Location: [id number] IMPRESSION: Small density projecting in the soft tissues adjacent to the left hamate and pisiform and slightly more distally at the level of the 5th metacarpal shaft. These could represent small foreign bodies. Please correlate clinically with the site of laceration. No acute osseous findings. Adiel Armstrong MD [facility] DI[facility]NOSTIC ORDERABLES Final Result * (ABNORMAL) CBC with Auto Differential (01/31/2025 12:50 PM CDT) WBC 6.21 4.00 - 12.00 10(3)/mcL 01/31/2025 1:51 PM CDT [facility] RBC 4.60 4.40 - 5.80 10(6)/mcL 01/31/2025 1:51 PM CDT [facility] HEMOGLOBIN (HGB) 13.6 13.0 - 16.5 g/dL 01/31/2025 1:51 PM CDT [facility] HEMATOCRIT (HCT) 40.8 38.0 - 50.0 % 01/31/2025 1:51 PM CDT [facility] MCV 88.7 82.0 - 96.0 fL 01/31/2025 1:51 PM CDT [facility] MCH 29.6 26.0 - 32.0 pg 01/31/2025 1:51 PM CDT [facility] MCHC 33.3 31.0 - 36.0 g/dL 01/31/2025 1:51 PM CDT [facility] PLATELET COUNT 354 140 - 440 10(3)/mcL 01/31/2025 1:51 PM CDT [facility] RDW 12.8 11.8 - 15.5 % 01/31/2025 1:51 PM CDT [facility] MPV 10.5 8.0 - 12.6 fL 01/31/2025 1:51 PM CDT [facility] NEUTROPHILS 62.8 40.0 - 68.0 % 01/31/2025 1:51 PM CDT [facility] LYMPHOCYTES 17.1(L) 19.0 - 49.0 % 01/31/2025 1:51 PM CDT [facility] MONOCYTES 15.8(H) 3.0 - 13.0 % 01/31/2025 1:51 PM CDT [facility] EOSINOPHILS 4.0 0.0 - 8.0 % 01/31/2025 1:51 PM CDT [facility] BASOPHILS 0.0 0.0 - 1.0 % 01/31/2025 1:51 PM CDT [facility] IMMATURE GRANULOCYTE 0.3 0.0 - 0.4 % 01/31/2025 1:51 PM CDT [facility] Comment:Immature Granulocyte s includes Metamyelocytes, Myelocytes, and Promyelocytes. ABSOLUTE NEUTROPHILS 3.90 1.40 - 5.30 10(3)/mcL 01/31/2025 1:51 PM CDT [facility] ABSOLUTE LYMPHOCYTES 1.06 0.90 - 3.30 10(3)/mcL 01/31/2025 1:51 PM CDT [facility] ABSOLUTE MONOCYTES 0.98(H) 0.10 - 0.90 10(3)/mcL 01/31/2025 1:51 PM CDT [facility] ABSOLUTE EOSINOPHIL 0.25 0.00 - 0.50 10(3)/mcL 01/31/2025 1:51 PM CDT [facility] ABSOLUTE BASOPHILS 0.00 0.00 - 0.10 10(3)/mcL 01/31/2025 1:51 PM CDT [facility] ABSOLUTE IMMATURE GRANULOCYTE 0.02 0.00 - 0.03 10 (3) mcL. 01/31/2025 1:51 PM CDT [facility] NRBC PER 100 WBC 0 02/01/20 1:51 PM CDT [facility] Blood Venipuncture / Unknown 01/31/2025 12:50 PM CDT 01/31/2025 1:49 PM CDT Adiel Armstrong MD HEMATOLOGY ORDERABLES Fin al Result Performing Organization Address City/[facility]/ZIP Co de Phone Number [facility] [address] [place] [address] * Magnesium Level (01/31/2025 12:50 PM CDT) MAGNESIUM 1.9 1.6 - 2.6 mg/dL 01/31/2025 2:13 PM CDT [facility] Blood Venipuncture / Unknown 01/31/2025 12:50 PM CDT 01/31/2025 1:49 PM CDT Adiel Armstrong MD CHEMISTRY ORDERABLES Janet l Result Performing Organization Address City/[facility]/ZIP Co de Phone Number [facility] [address] [place] [address] * Lipase (01/31/2025 12:50 PM CDT) LIPASE 21 8 - 78 U/L 01/31/2025 2:13 PM CDT [facility] Blood Venipuncture / Unknown 01/31/2025 12:50 PM CDT 01/31/2025 1:49 PM CDT us Adiel Armstrong MD CHEMISTRY ORDERABLES Janet l Result [facility] [address] [place] [address] * (ABNORMAL) CMP (01/31/2025 12:50 PM CDT) SODIUM 138 136 - 145 mmol/L 01/31/2025 2:13 PM CDT [facility] POTASSIUM 3.8 3.5 - 5.1 mmol/L 01/31/2025 2:13 PM CDT [facility] CHLORIDE 104 98 - 107 mmol/L 01/31/2025 2:13 PM CDT [facility] CO2, VENOUS 25 22 - 30 mmol/L 01/31/2025 2:13 PM CDT [facility] ANION GAP 12.8 <18.0 mmol/L 01/31/2025 2:13 PM CDT [facility] GLUCOSE 101(H) 70 - 99 mg/dL 01/31/2025 2:13 PM CDT [facility] BUN 12 8 - 26 mg/dL 01/31/2025 2:13 PM CDT [facility] CREATININE, BLOOD 0.76 0.70 - 1.30 mg/dL 01/31/2025 2:13 PM CDT [facility] BUN/CREATININE RATIO 16 12 - 20 ratio 01/31/2025 2:13 PM CDT [facility] TOTAL PROTEIN 8.1(H) 6.0 - 8.0 g/dL 01/31/2025 2:13 PM CDT [facility] ALBUMIN 4.5 3.5 - 5.0 g/dL 01/31/2025 2:13 PM CDT [facility] A/G RATIO 1.3 1.0 - 2.2 01/31/2025 2:13 PM CDT [facility] CALCIUM 8.6(L) 8.7 - 10.5 mg/dL 01/31/2025 2:13 PM CDT [facility] T BILI 0.5 0.2 - 1.2 mg/dL 01/31/2025 2:13 PM CDT [facility] SGOT (AST) 17 <43 U/L 01/31/2025 2:13 PM CDT [facility] SGPT (ALT) 12 <56 U/L 01/31/2025 2:13 PM CDT [facility] ALKALINE PHOSPHATASE 91 40 - 150 U/L 01/31/2025 2:13 PM CDT [facility] GFR, ESTIMATED >60 >=60 01/31/2025 2:13 PM CDT [facility] Comment: Creatinine Clearance is the preferred criteria for selecting drug dose adjustments in renally impaired patients. The GFR is provided as additional pertinent clinical information. GFR is reported in mL/min/1.73 sq m. Calculation based on the Chronic Kidney Disease Epidemiology Collaboration (CKD- EPI) equation refit without adjustment for race. GFR, EST. >60 >=60 025 2:13 PM CDT [facility] GFR, EST. NONAFRICAN >60 >=60 01/31/2025 2:13 PM CDT [facility] Blood Venipuncture / Unknown 01/31/2025 12:50 PM CDT 01/31/2025 1:49 PM CDT us Adiel Armstrong MD CHEMISTRY ORDERABLES Janet rahman Result [facility] [address] [place] [address] documented in this encounter Visit Diagnoses Diagnosis Nausea and vomiting, unspecified vomiting type- Primary documented in this encounter Administered Medications Inactive Administered Medications - up to 3 most recent administrations Medication Order MAR Action Action Date Dose Rate Site ondansetron (ZOFRAN) injection 4 mg 4 mg, Intravenous, ONCE, 1 dose, On 01/31/25 at 1330 Given 01/31/2025 12:57 PM CDT 4 mg sodium chloride 0.9 % 1,000 mL IV bolus Intravenous, ONCE, 1 dose, On 01/31/25 at 1330, Administer over 0.5 Hours New Bag 01/31/2025 12:56 PM CDT 2000 mL/hr documented in this encounter Active and Recently Administered Medications Times are shown in CDT. Scheduled Medication Order 01/29/2025 01/30/2025 01/31/2025 ondansetron (ZOFRAN) injection 4 mg (COMPLETED) 4 mg, Intravenous, ONCE, 1 dose, On 01/31/25 at 1330 1257 (Given - Provid er: Jeremie Mcdonald RN) sodium chloride 0.9 % 1,000 mL IV bolus (COMPLETED) Intravenous, ONCE, 1 dose, On 01/31/25 at 1330, Administer over 0.5 Hours [id number] (New Bag - Prov ider: Jeremie Mcdonald RN)[id number] (Stopped - Provider: Jeremie Mcdonald RN) documented in this encounter Care Teams Sales Center Manager Relationship Specialty Start Date End Date Provider, None [place] PCP - General 01/31/25 documented as of this encounter
[2025-02-01 13:16] VITALS: BP 112/77; PULSE 88; RESP 20; TEMP 36.6; O2SAT 100
--- NOTE | 2025-02-01 13:17 | ED_ITS ---
HPI - General Adult General Chief complaint: Abdominal Pain Stated complaint: Food Poisoning Time Seen by Provider: 02/01/25 13:17 Source: patient Mode of arrival: ambulatory Limitations: no limitations History of Present Illness HPI narrative: 54-year-old male patient presents to the [facility] with complaints of nausea vomiting and diarrhea for the past 4-5 days. Patient states he thinks he has food poisoning. Patient was seen at [facility] ER yesterday and was given fluids and some prescriptions for nausea to take at home. Patient states he is taking the medication at home but continues to have nausea vomiting and diarrhea. Patient states he feels the fluid billing up in his chest at times. Patient states he does get a sour taste in the mouth at times. Patient denies any recent drugs or alcohol. Related Data Allergies Allergy/AdvReac Type Severity Reaction Status Date / Time No Known Allergies Allergy Verified 02/01/25 13:23 Review of Systems Review of Systems: CONSTITUTIONAL: Denies fever, chills, or sweats. EYES: Denies visual changes, redness, or discharge. ENT: Denies rhinorrhea, congestion, sore throat, or otalgia. CARDIOVASCULAR: Denies chest pain, palpitations, or edema. RESPIRATORY: Denies cough or dyspnea. GASTROINTESTINAL: Positive generalized abdominal pain, nausea, vomiting, and diarrhea. GENITOURINARY: Denies dysuria or hematuria. SKIN: Denies rash or itching. MUSCULOSKELETAL: Denies back pain, joint pain, or myalgia. NEUROLOGIC: Denies headache, numbness, or weakness. PSYCHIATRIC: Denies anxiety or depression. [facility] Past Medical History Medical History History of drug abuse History of dental problems Anxiety Surgical History Surgical History H/O tooth extraction Hx of appendectomy Family History Family History Other No significant family history Social History Social History Smoking status: Former smoker Alcohol intake: former Substance use: former Substance use type: amphetamines Last use: 14 months ago stated Gender identity (if verbalized by the patient): Male Comments At the time of my signature I agree with nursing past medical history, surgical, social, and family history. There is no relevant family history pertinent to the presenting complaint. Exam Narrative: GENERAL: Well-appearing, well-nourished, and in no acute distress. HEAD: Normocephalic, atraumatic. EYES: PERRLA and EOMI. ENT: Nares clear, no rhinorrhea or epistaxis. Mucous membranes moist. posterior pharynx no erythema, tonsillar enlargement, exudates or lesions present. Bilateral TMs are clear no erythema or foreign bodies. NECK: Supple. No lymphadenopathy CHEST: Clear to auscultation. No respiratory distress. HEART: Regular rate and rhythm. No murmur heard. Normal peripheral pulses. ABDOMEN: Soft, flat, nondistended. No guarding, rebound tenderness, or rigid. No pulsatilla masses. hyperactive Bowel sounds present in all four quadrants. No organomegaly. Negative White?s sign. No periumbicial tenderness. No Supra p ublic tenderness or distension. Good femoral pulses bilaterally. No hernia noted. No scars or surface trauma. EXTREMITIES: Normal range of motion. No edema. SKIN: Warm, dry, no rash. NEURO: No focal deficits. Alert and oriented x3. Course Course Level of Care: Express Care Visit Vital Signs Vital signs: Vital Signs Temperature 36.6 C 02/01/25 13:16 Pulse Rate 88 02/01/25 13:16 Respiratory Rate 02/01/25 13:16 Blood Pressure 112/77 02/01/25 13:16 Pulse Oximetry 100 02/01/25 13:16 Oxygen Delivery Room Air 02/01/25 13:16 Temperature 36.6 C 02/01/25 13:16 Pulse Rate 88 02/01/25 13:16 Respiratory Rate 02/01/25 13:16 Blood Pressure 112/77 02/01/25 13:16 Pulse Oximetry 100 02/01/25 13:16 Oxygen Delivery Room Air 02/01/25 13:16 Vital signs reviewed. Medical Decision Making MDM Narrative Medical decision making narrative: Discussed with patient that we do not have IV hydration capabilities here. Discussed with patient we can give him a dose of Zofran to see if this helps with the nausea and send him home with Pepcid and omeprazole help the current symptoms. Discussed with patient if he continues to have symptoms despite the medications that was given to me lead to go back to the ER get some blood work to look for possible infection such as appendicitis, gallbladder or pancreatitis. Patient verbalized underside standing denies any other questions or concerns at this time. Differential Diagnosis Differential Diagnosis: Differential diagnosis: Appendicitis, ovarian torsion, gallbladder disease, ovarian torsion, pancreatitis, lower lobe pneumonia,AAA, AMI or ACS, DKA, diverticulitis. Vital Signs Vital Signs: Vital Signs Temperature 36.6 C 02/01/25 13:16 Pulse Rate 88 02/01/25 13:16 Respiratory Rate 20 02/01/25 13:16 Blood Pressure 112/77 02/01/25 13:16 Pulse Oximetry 100 02/01/25 13:16 Oxygen Delivery Room Air 02/01/25 13:16 Temperature 36.6 C 02/01/25 13:16 Pulse Rate 88 02/01/25 13:16 Respiratory Rate 20 02/01/25 13:16 Blood Pressure 112/77 02/01/25 13:16 Pulse Oximetry 100 02/01/25 13:16 Oxygen Delivery Room Air 02/01/25 13:16 Critical Care Time Critical Care Time Critical Care Time: No Discharge Plan Discharge Clinical Impression: Chronic gastroesophageal reflux disease Patient Disposition: Home Condition: Stable Instructions: Antibiotic Form, GERD (Gastroesophageal Reflux Disease) (ED) Additional Instructions: Gastroesophageal reflux disease (GERD) is a backflow of acid from the stomach into the swallowing tube (esophagus). Home care These home care steps can help you manage GERD: Maintain a healthy weight. Get help to lose any extra pounds. Avoid lying down after meals. Avoid eating late at night. Elevate the head of your bed by 6 inches. You can do this by placing wooden blocks or bed risers under the head of your bed. Avoid wearing tight-fitting clothes. Avoid foods that might irritate your stomach, such as the following: Alcohol Fat Chocolate Caffeine Spearmint or peppermint Begin an exercise program. You can benefit from simple activities, such as walking or gardening. Break the smoking habit. Enroll in a stop-smoking program to improve your chances of success. Limit alcohol intake to no more than 2 drinks a day. Take your medicines exactly as directed. Don?t skip doses. Avoid [id number] nonsteroidal anti-inflammatory medicines, such as aspirin and ibuprofen, unless recommended by your healthcare provider for certain conditions. If possible, avoid nitrates (heart medicines, such as nitroglycerin and isosorbide dinitrate ). Follow-up with your primary doctor in the next 5-7 days as needed. When to call the healthcare provider Call your healthcare provider immediately if you have any of the following: Trouble swallowing Pain when swallowing Feeling of food caught in your chest or throat Pain in the neck, chest, or back Heartburn that causes you to vomit Vomiting blood Black or tarry stools (from digested blood) More saliva (watering of the mouth) than usual Weight loss of more than 3% to 5% of your total body weight in a month Hoarseness or sore throat that won?t go away Choking, coughing, or wheezing Patient Language: Ma[place] Prescriptions: New omeprazole 20 mg capsule,delayed release(DR/EC) 20 mg PO DAILY Qty: 10 0RF famotidine [Pepcid] 40 mg tablet 40 mg PO DAILY Qty: 10 0RF ondansetron 4 mg tablet,disintegrating 4 mg PO Q6H PRN (Reason: nausea and vomiting) Qty: 10 0RF Follow-up/Referrals: PHYSICIAN,ASSOCIATE PROFESSOR OF BIOSTATISTICS [Primary Care Provider] - Time of Disposition: 13:43
[2025-02-01] MEDS: ONDANSETRON HCL ODT 4 MG TABLET PO (13:41)
== END 2025-02-01 13:56 | disposition home or self-care (01) ==
PROVIDERS: Emergency Provider Nurse Practitioner Family
DX: K21.9 Gastro-esophageal reflux disease without esophagitis (principal); Z87.891 Personal history of nicotine dependence
CPT/HCPCS: 99213; A9270; G0463